=== PATIENT | female | born 1950 | race Caucasian/White ===

== ENCOUNTER 2020-02-06 20:03 | Emergency (ER) | payer MEDICARE ==
[~2020-02-06] VITALS: Ht 162.6 cm; Wt 79.5 kg
[2020-02-06 20:15] VITALS: BP 143/72
[2020-02-06 20:54] LABS: CLARITY,URINE CLEAR (Clear); GLUCOSE, URINE NEGATIVE (Neg); KETONES,URINE NEGATIVE (Neg); LEUKOCYTE ESTERASE ,URINE SMALL (Neg); NITRITES, URINE NEGATIVE (Neg); OCCULT BLOOD,URINE LARGE (Neg); PROTEIN,URINE 100 mg/dl (Neg); UROBILINOGEN,URINE 0.2 E.U/dL (0.2-1.0)
[2020-02-06 21:11] LABS: COLOR,URINE RED (Yellow); UA COLLECTION TYPE CLN CATCH MIDSTREAM
[2020-02-06 21:19] LABS: BACTERIA,URINE FEW /HPF (Neg); MUCUS STRANDS FEW /LPF (Neg); RBC,URINE 50-100 /HPF (0-2); SQUAMOUS EPITHELIAL CELL,UR NONE SEEN /LPF (FEW)
[2020-02-06] MEDS ORDERED: CEPH500C5 PO (21:35)
== END 2020-02-06 22:06 | disposition home or self-care (01) ==
LOC: ER 20:05
DX: N39.0 Urinary tract infection, site not specified (principal); Z90.710 Acquired absence of both cervix and uterus; Z88.5 Allergy status to narcotic agent; Z79.899 Other long term (current) drug therapy
CPT/HCPCS: 81001; 87077; 87088; 87186; 99283

== ENCOUNTER 2020-07-30 13:55 | Emergency (ER) | payer MEDICARE, BC ==
[~2020-07-30] VITALS: Ht 165.1 cm; Wt 75.0 kg
[2020-07-30 14:00] VITALS: BP 116/60
[2020-07-30 15:29] LABS: CLARITY,URINE CLEAR (Clear); COLOR,URINE YELLOW (Yellow); GLUCOSE, URINE NEGATIVE (Neg); KETONES,URINE NEGATIVE (Neg); LEUKOCYTE ESTERASE ,URINE NEGATIVE (Neg); NITRITES, URINE NEGATIVE (Neg); OCCULT BLOOD,URINE NEGATIVE (Neg); PROTEIN,URINE NEGATIVE (Neg); UROBILINOGEN,URINE 0.2 E.U/dL (0.2-1.0)
[2020-07-30 15:30] LABS: UA COLLECTION TYPE VOIDED
== END 2020-07-30 15:51 | disposition home or self-care (01) ==
LOC: ER 13:55
DX: R10.9 Unspecified abdominal pain (principal); Z20.822 Contact with and (suspected) exposure to COVID-19; R19.7 Diarrhea, unspecified; R68.83 Chills (without fever); Z88.0 Allergy status to penicillin; Z87.440 Personal history of urinary (tract) infections; Z90.712 Acquired absence of cervix with remaining uterus; Z98.84 Bariatric surgery status
CPT/HCPCS: 81003; 87635; 99283; C9803

== ENCOUNTER 2022-02-14 17:51 | Emergency (ER) | payer BC, MEDICARE ==
[~2022-02-14] VITALS: Ht 162.6 cm; Wt 72.7 kg
[2022-02-14 18:07] VITALS: BP 130/70
[2022-02-14 19:10] LABS: BASOPHILS % (AUTO) 0.7 % (0-1); EOSINOPHILS # (AUTO) 0.1 X10'3 (0-0.9); EOSINOPHILS % (AUTO) 1.8 % (0-6); HEMATOCRIT 41.4 % (35.0-45.0); HEMOGLOBIN 14.1 g/dl (12.0-16.0); LYMPHOCYTES # (AUTO) 1.7 X10'3 (1.1-4.8); LYMPHOCYTES % (AUTO) 25.9 % (21-51); MEAN CORPUSCULAR HEMOGLOBIN 31.2 PG (27.0-31.0); MEAN CORPUSCULAR VOLUME 91.9 FL (78-98); MEAN PLATELET VOLUME 8.5 FL (7.4-10.4); MONOCYTES # (AUTO) 0.4 X10'3 (0-0.9); MONOCYTES % (AUTO) 6.8 % (2-12); NEUTROPHILS # (AUTO) 4.3 X10'3 (1.8-7.7); NEUTROPHILS % (AUTO) 64.8 % (42-75); PLATELET COUNT 301 X10'3 (140-440); RED CELL DISTRIBUTION WIDTH 13.7 % (11.5-14.5); WHITE BLOOD COUNT 6.6 X10'3 (4.5-11.0)
[2022-02-14 19:23] LABS: ALANINE AMINOTRANSFERASE 29 U/L (12-78); ALBUMIN 3.9 G/DL (3.4-5.0); ALBUMIN/GLOBULIN RATIO 1.2 (1.1-1.5); ALKALINE PHOSPHATASE 89 IU/L (46-116); ANION GAP 9 (8-16); ASPARTATE AMINO TRANSFERASE 21 U/L (10-37); BILIRUBIN,TOTAL 0.2 MG/DL (0.1-1.0); BLOOD UREA NITROGEN 25 MG/DL (7-18); BUN/CREATININE RATIO 33.3 (6.6-38.0); CALCIUM 9.8 MG/DL (8.5-10.1); CHLORIDE 103 MMOL/L (99-107); CREATININE 0.75 MG/DL (0.40-0.90); GLUCOSE 110 MG/DL (70-104); POTASSIUM 3.8 MMOL/L (3.5-5.1); SODIUM 141 MMOL/L (135-145); TOTAL CARBON DIOXIDE 29.3 MMOL/L (24-32); TOTAL PROTEIN 7.1 G/DL (6.4-8.2); eGFR 76 ML/MIN
== END 2022-02-14 20:34 | disposition left against medical advice (07) ==
LOC: ER 17:52
DX: R07.9 Chest pain, unspecified (principal); Z53.21 Procedure and treatment not carried out due to patient leaving prior to being seen by health care provider
CPT/HCPCS: 36415; 71045; 80053; 82948; 83880; 84484; 85025; 93005

== ENCOUNTER 2023-01-02 06:56 | Day surgery (SDC) | payer MEDICARE, OTHER ==
[2023-01-01 11:27] LABS: BASOPHILS % (AUTO) 0.6 % (0-1); EOSINOPHILS # (AUTO) 0.1 X10'3 (0-0.9); EOSINOPHILS % (AUTO) 1.7 % (0-6); HEMOGLOBIN 14.5 g/dl (12.0-16.0); LYMPHOCYTES # (AUTO) 1.6 X10'3 (1.1-4.8); LYMPHOCYTES % (AUTO) 31.2 % (21-51); MEAN CORPUSCULAR HEMOGLOBIN 30.8 PG (27.0-31.0); MEAN CORPUSCULAR HGB CONC 32.9 g/dL (33.0-36.5); MEAN CORPUSCULAR VOLUME 93.8 FL (78-98); MEAN PLATELET VOLUME 9.7 FL (7.4-10.4); MONOCYTES # (AUTO) 0.5 X10'3 (0-0.9); MONOCYTES % (AUTO) 8.8 % (2-12); NEUTROPHILS % (AUTO) 57.7 % (42-75); PLATELET COUNT 293 X10'3 (140-440); RED BLOOD COUNT 4.69 X10'6 (4.20-5.60); RED CELL DISTRIBUTION WIDTH 14.1 % (11.5-14.5); WHITE BLOOD COUNT 5.2 X10'3 (4.5-11.0)
[2023-01-01 11:36] LABS: APTT 27 SECONDS (22-32); PROTHROMBIN TIME 10.8 SECONDS (9.0-12.0)
[2023-01-01 11:44] LABS: ALBUMIN 3.7 G/DL (3.4-5.0); ANION GAP 7 (8-16); BLOOD UREA NITROGEN 24 MG/DL (7-18); BUN/CREATININE RATIO 34.8 (10.0-20.0); CALCIUM 9.7 MG/DL (8.5-10.1); CHLORIDE 103 MMOL/L (99-107); CREATININE 0.69 MG/DL (0.40-0.90); GLUCOSE 92 MG/DL (70-104); POTASSIUM 4.2 MMOL/L (3.5-5.1); SODIUM 140 MMOL/L (135-145); TOTAL CARBON DIOXIDE 29.9 MMOL/L (24-32); eGFR 84 ML/MIN
[2023-01-02] VITALS (10 sets, daily range): BP systolic 104–143; BP diastolic 41–92; PULSE 51–63; RESP 12–15; TEMP 98; O2SAT 93–98
[~2023-01-02] VITALS: Ht 162.6 cm; Wt 78.4 kg
[2023-01-02] MEDS ORDERED: LORazepam 0.5 MG tablet PO PRN (07:25)
[2023-01-02] MEDS ORDERED: normal saline 1,000 ML IV SCH (07:25)
[2023-01-02] MEDS ORDERED: diphenhydrAMINE 25mg capsule PO PRN (07:25)
[2023-01-02] MEDS ORDERED: BUPR-122 PO (08:08)
[2023-01-02] MEDS ORDERED: ATOR40TA72 PO (08:08)
[2023-01-02] MEDS ORDERED: GABA-530 PO (08:08)
[2023-01-02] MEDS ORDERED: QUER500C (08:08)
[2023-01-02] MEDS ORDERED: METF-1203 PO (08:08)
[2023-01-02] MEDS ORDERED: ESCI-8 PO (08:08)
[2023-01-02] MEDS ORDERED: WARF1TAB83 PO (08:08)
[2023-01-02] MEDS ORDERED: SOTA80TA PO (08:08)
[2023-01-02] MEDS ORDERED: ASCO-139 PO (08:08)
[2023-01-02] MEDS ORDERED: ASCO1TAB47 (08:09)
[2023-01-02] MEDS ORDERED: UBID10CA9 PO (08:09)
[2023-01-02] MEDS ORDERED: PRAS25CA PO (08:10)
[2023-01-02] MEDS ORDERED: ELDE350C (08:10)
[2023-01-02] MEDS ORDERED: MULT-384 PO (08:11)
[2023-01-02] MEDS ORDERED: CYAN100019 PO (08:11)
[2023-01-02] MEDS ORDERED: iohexol 350 MG/ML 50ML vial IV ONE ×2 (09:04→10:03)
[2023-01-02] MEDS ORDERED: nitroGLYCERIN-Tridil 50MG/D5W 250 ML IV ONE (09:04)
[2023-01-02] MEDS ORDERED: midazolam 1 mg/ML 2ml injection ONE (09:04)
[2023-01-02] MEDS ORDERED: heparin 1,000unit/ml 10ml vial 10 ML ONE (09:04)
[2023-01-02] MEDS ORDERED: LIDOcaine 1% (10mg/ml) 2ml vial ONE (09:04)
[2023-01-02] MEDS ORDERED: verapamil 2.5 mg/ml inj IV ONE (09:04)
[2023-01-02] MEDS ORDERED: fentaNYL/PF 50MCG/1 ML 2ML syringe ONE (09:04)
[2023-01-02] MEDS ORDERED: iohexol 350MG/ML 100ml bottle IV ONE (09:05)
[2023-01-02 10:13] LABS: ISTAT HGB ART 13.6 g/dl (12.0-16.0); ISTAT Hct ART 40 %PCV (35-45); ISTAT O2 SATURATION ARTERIAL 92 % (95-98); ISTAT SOURCE ART
[2023-01-02 10:45] LABS: ISTAT HGB MIX 13.6 g/dl (12.0-16.0); ISTAT Hct MIX 40 %PCV (35-45); ISTAT O2 SATURATION MIX VENOUS 69 % (60-80); ISTAT SOURCE VEN
[2023-01-02] MEDS ORDERED: normal saline 1000ml 1,000 ML IV SCH (10:55)
[2023-01-02] MEDS ORDERED: WARF3TAB56 (11:16)
== END 2023-01-02 15:10 | disposition home or self-care (01) ==
LOC: SSTAY O 06:56
PROVIDERS: ATTEND Internal Medicine Cardiovascular Disease
DX: R07.89 Other chest pain (principal); I25.10 Atherosclerotic heart disease of native coronary artery without angina pectoris; E11.9 Type 2 diabetes mellitus without complications; E66.3 Overweight; Z68.29 Body mass index [BMI] 29.0-29.9, adult; I10 Essential (primary) hypertension; E78.5 Hyperlipidemia, unspecified; Z79.84 Long term (current) use of oral hypoglycemic drugs; Z79.01 Long term (current) use of anticoagulants; Z79.899 Other long term (current) drug therapy; Z87.442 Personal history of urinary calculi; Z90.710 Acquired absence of both cervix and uterus; Z98.84 Bariatric surgery status; Z98.890 Other specified postprocedural states; Z83.3 Family history of diabetes mellitus; Z82.3 Family history of stroke
CPT/HCPCS: 36415; 76937; 80048; 82803; 82948; 85014; 85025; 85610; 85730; 93005; 93460; 99152; 99153; A6258; J1644; J2250; J3010; J3490; J7030; Q0163; Q9967; A6402; C1725; C1751; C1894